=== PATIENT | male | born 1960 | race African-American/Black ===

== ENCOUNTER 2017-06-25 09:02 | Emergency (ER) | payer MEDICAID ==
[~2017-06-25] VITALS: Ht 175.3 cm; Wt 80.0 kg
[2017-06-25 11:15] VITALS: BP 138/90
== END 2017-06-25 11:39 | disposition home or self-care (01) ==
LOC: ER 11:34
DX: S00.93XA Contusion of unspecified part of head, initial encounter (principal); I10 Essential (primary) hypertension; Z88.1 Allergy status to other antibiotic agents; X58.XXXA Exposure to other specified factors, initial encounter; Y93.89 Activity, other specified; Y92.89 Other specified places as the place of occurrence of the external cause; Y99.8 Other external cause status
CPT/HCPCS: 99283

== ENCOUNTER 2017-07-08 15:42 | Emergency (ER) | payer MEDICAID ==
[~2017-07-08] VITALS: Ht 175.3 cm; Wt 80.0 kg
[2017-07-08 15:45] VITALS: BP 131/84
[2017-07-08] MEDS ORDERED: ATEN50TA PO (15:48)
== END 2017-07-08 17:48 | disposition home or self-care (01) ==
LOC: ER 15:52
DX: M79.89 Other specified soft tissue disorders (principal); J45.909 Unspecified asthma, uncomplicated; I10 Essential (primary) hypertension; E05.90 Thyrotoxicosis, unspecified without thyrotoxic crisis or storm; F12.10 Cannabis abuse, uncomplicated; Z85.46 Personal history of malignant neoplasm of prostate; Z88.1 Allergy status to other antibiotic agents
CPT/HCPCS: 99281